=== PATIENT | male | born 2000 | race Caucasian/White ===

== ENCOUNTER 2018-08-09 13:57 | Emergency (ER) | payer OTHER ==
[2018-08-09 14:18] VITALS: BP 90/70
--- NOTE | 2018-08-09 15:09 | EDPHY ---
H & P Stated Complaint: left arm numbness and feeling anxious all week Time Seen by Provider: 08/09/18 14:51 HPI/ROS: Chief Complaint: Arm numbness, feels anxious HPI: 17-year-old male presenting with 1 week of feeling mildly anxious, occasional numbness in his left arm. Patient states that his symptoms began after he used MDMA for the 1st time last week. Denies any falls or injuries. No neck pain. No headache. Some mild occasional shortness of breath associated with his anxiety feelings. No cough. No abdominal pain. No nausea vomiting or diarrhea. No fevers or chills. No weight loss or weight gain. Patient states that he did drink heavily last night. He does use E cigarettes. Other than the MDMA a week ago no other drug use. Patient's is complaining some stool subjective feeling in his left arm including his left shoulder left upper arm forearm hand and fingers. He is not dropping anything. He has not have a loss of sensation. ROS: 10 systems were reviewed and were negative except those elements noted in the HPI. PMH: Denies Social History: Uses E cigarettes, occasional heavy alcohol, recent MDMA use Family History: non-contributory Physical Exam: Gen: Awake, Alert, No Distress HEENT: Nose: no rhinorrhea Eyes: PERRLA, EOMI Mouth: Moist mucosa Neck: Supple, no JVD Chest: nontender, lungs clear to auscultation Heart: S1, S2 normal, no murmur Abd: Soft, non-tender, no guarding Back: no CVA tenderness, no midline tenderness Ext: no edema, non-tender Skin: no rash Neuro: CN II-XII intact, Sensation grossly intact, Strength 5/5 in bilateral upper and lower extremities, normal finger-nose, normal heel-hawkins, normal deep tendon reflexes bilateral upper and lower extremities. Sensations intact in the radial, median, and ulnar nerve distribution. Normal proximal and distal strength. Negative Romberg, normal gait. - Personal History Current Tetanus/Diphtheria Vaccine: Yes Current Tetanus Diphtheria and Acellular Pertussis (TDAP): Yes - Medical/Surgical History Hx Asthma: Yes Hx Chronic Respiratory Disease: No Hx Diabetes: No Hx Cardiac Disease: No Hx Renal Disease: No Hx Cirrhosis: No Hx Alcoholism: No Hx HIV/AIDS: No Hx Splenectomy or Spleen Trauma: No Constitutional: Initial Vital Signs Temperature (C) 36.6 C 08/09/18 14:15 Heart Rate 89 08/09/18 14:15 Respiratory Rate 18 08/09/18 14:15 Blood Pressure 90/70 L 08/09/18 14:15 O2 Sat (%) 96 08/09/18 14:15 O2 Delivery Mode Room Air Allergies/Adverse Reactions: No Known Allergies Allergy (Unverified 08/09/18 14:17) Home Medications: Medication Instructions Recorded NK [No Known Home Meds] 08/09/18 Medical Decision Making ED Course/Re-evaluation: 17-year-old male presenting with subjective symptoms of arm numbness, anxiety,. He did drink heavily last night. He did use MDMA for the 1st time a week ago. He has a completely normal neurologic exam today. No other findings. Vital signs are appropriate. I think his symptoms are a combination of some mild underlying anxiety and symptoms secondary to his polysubstance use. I do not see any evidence of any other acute medical process is. I do not believe that imaging or blood work are indicated at this time. He has been reassured. Will refer him for follow-up with [facility] as an outpatient. Departure - Departure Disposition: Home, Routine, Self-Care Clinical Impression: Anxiety Condition: Good Instructions: Anxiety (ED), Anxiolysis in Adults (ED) Additional Instructions: Follow up with [facility] in 2-3 days for further evaluation. Return to the emergency department for worsening numbness, weakness, fevers, or any other concerns. Referrals: BEEBEANAHI SHAIKH ,. [Clinic] - As per Instructions
== END 2018-08-09 15:29 | disposition home or self-care (01) ==
DX: F41.9 Anxiety disorder, unspecified (principal); R20.0 Anesthesia of skin

== ENCOUNTER → 2018-11-05 | Outpatient (CLI) | payer OTHER ==
[~2018-11-05] MED LIST: GADOBUTROL 10 ML VIAL IVP ONE
== END ==
LOC: FIMAGING 13:54
PROVIDERS: ATTEND Psychiatry & Neurology Neurology
DX: R41.89 Other symptoms and signs involving cognitive functions and awareness (principal); R46.89 Other symptoms and signs involving appearance and behavior
CPT/HCPCS: A9585